=== PATIENT | female | born 1985 | race Caucasian/White ===

== ENCOUNTER → 2018-09-01 13:58 | Outpatient (CLI) | payer OTHER, SELFPAY ==
[2018-09-01 16:21] LABS: Free T4, Direct Thyroxine 0.79 ng/dL (0.78-2.19)
[2018-09-01 16:35] LABS: Thyroid Stimulating Hormone 0.94 uIU/mL (0.47-4.68)
== END ==
PROVIDERS: PCP Internal Medicine; Visit Provider Obstetrics & Gynecology
DX: E28.2 Polycystic ovarian syndrome (principal)
CPT/HCPCS: 36415; 84439; 84443

== ENCOUNTER → 2018-11-13 15:42 | Outpatient (CLI) | payer OTHER, SELFPAY ==
[2018-11-13 17:18] LABS: Free T4, Direct Thyroxine 0.84 ng/dL (0.78-2.19)
[2018-11-13 17:32] LABS: Thyroid Stimulating Hormone 1.13 uIU/mL (0.47-4.68)
== END ==
PROVIDERS: PCP Internal Medicine; Visit Provider Obstetrics & Gynecology
DX: E03.9 Hypothyroidism, unspecified (principal)
CPT/HCPCS: 36415; 84439; 84443

== ENCOUNTER → 2019-10-15 14:34 | Outpatient (CLI) | payer OTHER, SELFPAY ==
[2019-10-15 17:00] LABS: Thyroid Stimulating Hormone 0.962 uIU/mL (0.47-4.68)
[2019-10-19 09:09] LABS: Chlamydia trachomatis Negative (Negative); Mycoplasma genitalium Negative (Negative); Neisseria gonorrhoeae Negative (Negative)
== END ==
PROVIDERS: PCP Internal Medicine; Referring Provider Obstetrics & Gynecology; Visit Provider Obstetrics & Gynecology
DX: Z00.00 Encounter for general adult medical examination without abnormal findings (principal); Z11.3 Encounter for screening for infections with a predominantly sexual mode of transmission
CPT/HCPCS: 36415; 84439; 84443; 87491; 87591